=== PATIENT | female | born 1965 | race Caucasian/White ===

== ENCOUNTER 2021-06-07 09:08 | Outpatient (CLI) ==
--- NOTE | 2021-06-07 14:12 | XRAY Report ---
PROCEDURE: Elbow 3 View RT INDICATIONS: RIGHT ELBOW PAIN TECHNIQUE: 3 views of the elbow were acquired. COMPARISON: None FINDINGS: BONES/JOINT: No acute, displaced fracture or dislocation. No appreciable joint effusion. SOFT TISSUES: No focal abnormality. IMPRESSION: 1.No acute osseous abnormality of the elbow. If the patient's pain persists, consider CT or MR imaging. Reviewed by: Alberto Lima MD on 06/07/2021 2:10 PM [facility] Approved by: Alberto Lima MD on 06/07/2021 2:10 PM [facility] Station ID: [id number]
== END 2021-06-07 09:09 | disposition home or self-care (01) ==
LOC: DI.WOS 09:08
PROVIDERS: ATTEND Physician Assistant
DX: M25.521 Pain in right elbow (principal)

== ENCOUNTER 2023-03-28 13:13 | Outpatient (CLI) | payer BC ==
--- NOTE | 2023-03-28 15:02 | MRI Report ---
PROCEDURE: LUMBAR SPINE WO INDICATIONS: LOW BACK PAIN TECHNIQUE: Noncontrast sagittal T1 spin echo and T2 fast echo, sagittal STIR, axial T1 and T2 fast spin echo thr ough the lumbar spine. In cases with scoliosis, additional coronal T2 fast spin echo may be performe d. COMPARISON: None. FINDINGS: Image quality: Excellent. Alignment and Curvature: Mild levocurvature centered at L2-L3. Trace anterolisthesis of L4 on L5. Bone Marrow: Marrow is of normal overall signal. No acute vertebral body compression fractures. Spinal Cord: Conus medullaris terminates at the L1-L2 level. Visualized cord demonstrates normal si gnal and size. Paraspinous Soft Tissues: No paravertebral masses. T12-L1: Minimal disc bulge. No canal stenosis or foraminal stenosis. L1-L2: Disc bulge. Mild facet hypertrophy. No canal stenosis or foraminal stenosis. L2-L3: Disc bulge. Facet hypertrophy. Far left lateral annulus tear plus disc bulge. Mild bilatera l foraminal narrowing. L3-L4: Moderately severe chronic disc height loss. Mild disc bulge. Facet hypertrophy. No significa nt canal stenosis. Incidental note is made of nerve root cysts in the right foramen, typically asympt omatic. No significant foraminal narrowing noted. L4-L5: Facet hypertrophy. Disc bulge with minimal superimposed left paracentral disc protrusion. No significant canal stenosis. Moderate bilateral foraminal stenosis. L5-S1: There is mild diffuse posterior disc bulge. There is right posterior lateral annulus tear, i mmediately subjacent to the right S1 nerve root in the right lateral recess. Disc material abuts the right S1 nerve root without posterior displacement. There is no canal stenosis or foraminal stenosis. There is bilateral facet hypertrophy. IMPRESSION: 1. No significant canal stenosis. 2. Multilevel facet arthropathy. 3. Moderate bilateral foraminal stenosis at L4-L5. 4. There is a far left lateral annulus tear at L2-L3 and a right posterior lateral annulus tear at L5 -S1. These are frequently incidental findings, but in the acute setting can result in radicular sympt oms at these levels. Reviewed by: Jasper Daugherty MD on 03/28/2023 3:01 PM PST Approved by: Jasper Daugherty MD on 03/28/2023 3:01 PM PST Station ID: [id number]
== END 2023-03-28 13:14 | disposition home or self-care (01) ==
LOC: DI 13:13
PROVIDERS: ATTEND Internal Medicine
DX: M51.36 Other intervertebral disc degeneration, lumbar region (principal); M48.061 Spinal stenosis, lumbar region without neurogenic claudication; M47.816 Spondylosis without myelopathy or radiculopathy, lumbar region; M51.37 Other intervertebral disc degeneration, lumbosacral region; M47.817 Spondylosis without myelopathy or radiculopathy, lumbosacral region

== ENCOUNTER 2023-04-04 13:24 | Outpatient (CLI) | payer BC ==
--- NOTE | 2023-04-07 10:59 | Mammography Report ---
BILATERAL DIGITAL SCREENING MAMMOGRAM 3D/2D: 04/04/2023 CLINICAL: Routine screening. No prior exams were available for comparison. Both breasts are heterogeneously dense, which may obscure small masses (category c / 51-75% glandular tissue). There are grouped heterogeneous calcifications in the left breast at 6 o'clock anterior depth. No other significant masses, calcifications, or other findings are seen in either breast. IMPRESSION: INCOMPLETE: NEEDS ADDITIONAL IMAGING EVALUATION The grouped heterogeneous calcifications in the left breast are indeterminate. Magnification and lat eromedial views are recommended. Based on the Tyrer Cuzick model (a risk assessment model) the patients lifetime risk is 15.1% and he r 10 year risk is 5.9%. According to the ACR, ACS, and NCCN guidelines, an annual breast MRI exam malick ng with mammogram is recommended if the patients lifetime risk is 20% or greater. This exam was interpreted at Station ID: [id number]. NOTE: For mammograms, a report in lay terms will be sent to the patient. Approximately 15% of breast malignancies will not be visualized mammographically. In the management of a palpable breast mass, a negative mammogram must not discourage biopsy of a clinically suspicious lesion. Electronically Signed By: Caryn [email or web address]:04/04/2023 17:18:36 ACR BI-RADS Category 0: Incomplete 3340F PARENCHYMAL PATTERN: (D) - The breast(s) demonstrate(s) heterogeneously dense fibroglandular parenchy ma. BI-RADS CATEGORY: (0) - 0 RECOMMENDATION: (ADDMAM) - Recommend additional mammographic views. [id number] Immediate follow-up LATERALITY: (L)
== END 2023-04-04 13:25 | disposition home or self-care (01) ==
LOC: DI 13:24
PROVIDERS: ATTEND Internal Medicine
DX: Z12.31 Encounter for screening mammogram for malignant neoplasm of breast (principal); R92.333 Mammographic heterogeneous density, bilateral breasts; R92.8 Other abnormal and inconclusive findings on diagnostic imaging of breast

== ENCOUNTER 2023-05-02 10:47 | Outpatient (CLI) | payer BC ==
--- NOTE | 2023-05-07 12:59 | Mammography Report ---
UNILATERAL LEFT DIGITAL DIAGNOSTIC MAMMOGRAM 3D/2D: 05/02/2023 CLINICAL: Patient returns for magnification views of microcalcifications in the left breast. Comparison is made to exam dated: 04/04/2023 mammogram - [facility]. The left breast is heterogeneously dense, which may obscure small masses (category c / 51-75% glandul ar tissue). There are grouped amorphous calcifications in the left breast at 6 o'clock anterior depth. These are seen in additional views. There is questioanble architectural distortion associated with the calcif ications. No other significant masses or calcifications are seen in the breast. IMPRESSION: SUSPICIOUS OF MALIGNANCY The grouped amorphous calcifications in the left breast are suspicious of malignancy. Stereotatic bi opsy recommended Based on the Tyrer Cuzick model (a risk assessment model) the patients lifetime risk is 14.8% and he r 10 year risk is 6.1%. According to the ACR, ACS, and NCCN guidelines, an annual breast MRI exam malick ng with mammogram is recommended if the patients lifetime risk is 20% or greater. This exam was interpreted at Station ID: [id number]. NOTE: For mammograms, a report in lay terms will be sent to the patient. Approximately 15% of breast malignancies will not be visualized mammographically. In the management of a palpable breast mass, a negative mammogram must not discourage biopsy of a clinically suspicious lesion. Electronically Signed By: Tha Lee M.D. lc/:05/02/2023 11:40:19 ACR BI-RADS Category 4: Suspicious abnormality 3344F PARENCHYMAL PATTERN: (D) - The breast(s) demonstrate(s) heterogeneously dense fibroglandular casper muro. BI-RADS CATEGORY: (4) - 4 Biopsy follow-up [id number] Immediate follow-up LATERALITY: (B)
== END 2023-05-02 10:48 | disposition home or self-care (01) ==
LOC: DI 10:47
PROVIDERS: ATTEND Internal Medicine
DX: R92.0 Mammographic microcalcification found on diagnostic imaging of breast (principal); R92.332 Mammographic heterogeneous density, left breast